=== PATIENT | female | born 1990 | race Caucasian/White ===

== ENCOUNTER 2018-12-21 18:25 | Emergency (ER) | payer MEDICAID ==
[~2018-12-21] VITALS: Ht 157.5 cm; Wt 71.2 kg
[~2018-12-21 18:25] MED LIST: IBUP-974 PO; PREN-385 PO; [UNRECOGNIZED DRUG - CODE] PO
[2018-12-21 18:33] VITALS: BP 116/59
--- NOTE | 2018-12-21 18:33 | NUR ---
PATIENT AMBULATED TO BED 4.
--- NOTE | 2018-12-21 18:45 | NUR ---
28 Y FEMALE PT C/O RLQ ABD PAIN X3 DAYS, REPORTS 7/10 SHARP PAIN RADIATING TO LOWER UMBILICAL. REPORTS VOMITING ONCE TODAY. PT IS X9 WEEKS , , LMP 10/09/18. DENIES VAGINAL BLEEDING. DENIES CONSTIPATION OR DIARRHEA. BOWEL SOUNDS ACTIVE IN ALL 4 QUADRANTS. LAST BM THIS AM. ABDOMEN SOFT AND ROUND. PT TAKING VITAMINS. VSS AT THIS TIME. ALERT AND ORIETNED. BED IS DOWN, LOCKED, BED RAIL X 1, ERMD TO SEE PT. PMH---GALLBLADDER REMOVAL NKA
--- NOTE | 2018-12-21 18:49 | NUR ---
PT AMB TO RESTROOM FOR URINE COLLECTION
--- NOTE | 2018-12-21 19:13 | NUR ---
REPORT GIVEN TO LISA CHOWDARY
--- NOTE | 2018-12-21 19:14 | NUR ---
RECEIVED REPORT FROM EPI COY.
--- NOTE | 2018-12-21 20:15 | NUR ---
LAB AT BEDSIDE.
[2018-12-21 20:30] LABS: BASOPHILS # (AUTO) 0.1 K/uL (0.00-0.22); BASOPHILS % (AUTO) 0.6 % (0.0-2.0); EOSINOPHILS # (AUTO) 0.3 K/uL (0-0.4); EOSINOPHILS % (AUTO) 3.6 % (0.0-4.0); HEMOGLOBIN 12.1 g/dL (12.0-16.0); LYMPHOCYTES # (AUTO) 1.8 K/uL (2.5-16.5); LYMPHOCYTES % (AUTO) 19.2 % (20.5-51.1); MEAN CORPUSCULAR HEMOGLOBIN 29 pg (27-31); MEAN CORPUSCULAR HGB CONC 34 g/dL (33-37); MEAN CORPUSCULAR VOLUME 85.2 fL (80-94); MONOCYTES # (AUTO) 0.6 K/uL (0.8-1.0); MONOCYTES % (AUTO) 6.6 % (1.7-9.3); NEUTROPHILS # (AUTO) 6.4 K/uL (1.8-7.7); PLATELET COUNT (AUTO) 255 K/uL (140-450); RED BLOOD CELL COUNT(AUTO) 4.23 MIL/uL (4.20-5.40); RED CELL DISTRIBUTION WIDTH 13.3 % (11.6-13.7); WHITE BLOOD COUNT (AUTO) 9.2 K/uL (4.8-10.8)
[2018-12-21 20:35] LABS: APPEARANCE,URINE CLEAR (CLEAR); BILIRUBIN,URINE NEGATIVE (NEGATIVE); BLOOD, URINE NEGATIVE (NEGATIVE); COLOR,URINE YELLOW (YELLOW); LEUKOCYTE ESTERASE ,URINE NEGATIVE (NEGATIVE); NITRITE, URINE NEGATIVE (NEGATIVE); PH,URINE 7.5 (5.0-9.0); UGLUCOSE NEGATIVE (NEGATIVE)
[2018-12-21 20:47] LABS: ALBUMIN 3.4 g/dL (3.4-5.0); ANION GAP 10.3 (8-16); CARBON DIOXIDE 27.8 mmol/L (21-32); CREATININE 0.9 mg/dL (0.6-1.3); POTASSIUM 4.1 mmol/L (3.5-5.1); TOTAL BILIRUBIN 0.3 mg/dL (0.0-1.0)
--- NOTE | 2018-12-21 21:04 | NUR ---
US AT BEDSIDE.
[2018-12-21 21:40] VITALS: BP 96/62
--- NOTE | 2018-12-21 21:40 | NUR ---
Patient discharged with v/s stable. Written and verbal after care instructions given and explained by Dr. Macias. Patient alert, oriented and verbalized understanding of instructions. Ambulatory with steady gait. All questions addressed prior to discharge. ID band removed. Patient advised to follow up with PMD. Rx of Tylenol given. Patient educated on indication of medication including possible reaction and side effects. Opportunity to ask questions provided and answered.
== END 2018-12-21 21:40 | disposition home or self-care (01) ==
LOC: MED 18:25
DX: O26.891 Other specified pregnancy related conditions, first trimester (principal); R10.31 Right lower quadrant pain; K21.9 Gastro-esophageal reflux disease without esophagitis; Z79.1 Long term (current) use of non-steroidal anti-inflammatories (NSAID); Z79.899 Other long term (current) drug therapy; Z3A.09 9 weeks gestation of pregnancy
CPT/HCPCS: 36415; 76801; 80053; 81003; 81025; 84702; 85025; 86900; 86901; 99284; Q0092

== ENCOUNTER 2019-06-24 21:45 | Observation (INO) | payer MEDICAID ==
[~2019-06-24] VITALS: Ht 157.5 cm; Wt 77.1 kg
[2019-06-24 22:23] VITALS: BP 101/64
[2019-06-24 22:26] LABS: APPEARANCE,URINE CLEAR (CLEAR); BILIRUBIN,URINE NEGATIVE (NEGATIVE); BLOOD, URINE NEGATIVE (NEGATIVE); COLOR,URINE YELLOW (YELLOW); LEUKOCYTE ESTERASE ,URINE NEGATIVE (NEGATIVE); NITRITE, URINE NEGATIVE (NEGATIVE); UGLUCOSE NEGATIVE (NEGATIVE)
[2019-06-25] MEDS ORDERED: ONDANSETRON 4 MG/2 ML VIAL IVP ONE (00:05)
[2019-06-25] MEDS ORDERED: METOCLOPRAMIDE 10 MG/2 ML INJ VIAL IVP ONE (00:05)
[2019-06-25] MEDS ORDERED: PANTOPRAZOLE 40 MG INJ VIAL IVP ONE (00:05)
[2019-06-25] MEDS ORDERED: METOCLOPRAMIDE 10 MG/2 ML INJ VIAL ONE (00:17)
[2019-06-25] MEDS ORDERED: LACTATED RINGERS 1,000 ML IV SCH (00:40)
[2019-06-25] MEDS ORDERED: PANTOPRAZOLE 40 MG INJ VIAL ONE (00:47)
[2019-06-25 00:53] LABS: ANION GAP 13.7 (8-16); CREATININE 0.6 mg/dL (0.6-1.3); POTASSIUM 3.7 mmol/L (3.5-5.1)
[2019-06-25 00:58] LABS: ALBUMIN 2.4 g/dL (3.4-5.0); TOTAL BILIRUBIN 0.4 mg/dL (0.0-1.0)
[2019-06-25 01:04] LABS: BASOPHILS % (AUTO) 0.1 % (0.0-2.0); EOSINOPHILS # (AUTO) 0.1 K/uL (0-0.4); EOSINOPHILS % (AUTO) 0.7 % (0.0-4.0); HEMATOCRIT 35.1 % (36-48); HEMOGLOBIN 11.5 g/dL (12.0-16.0); LYMPHOCYTES # (AUTO) 1.2 K/uL (2.5-16.5); LYMPHOCYTES % (AUTO) 10.4 % (20.5-51.1); MEAN CORPUSCULAR HEMOGLOBIN 29 pg (27-31); MEAN CORPUSCULAR HGB CONC 33 g/dL (33-37); MEAN CORPUSCULAR VOLUME 87.2 fL (80-94); MONOCYTES # (AUTO) 0.5 K/uL (0.8-1.0); MONOCYTES % (AUTO) 4.4 % (1.7-9.3); NEUTROPHILS # (AUTO) 9.8 K/uL (1.8-7.7); NEUTROPHILS % (AUTO) 84.4 % (42.2-75.2); PLATELET COUNT (AUTO) 275 K/uL (140-450); RED BLOOD CELL COUNT(AUTO) 4.02 MIL/uL (4.20-5.40); WHITE BLOOD COUNT (AUTO) 11.6 K/uL (4.8-10.8)
[2019-06-25] MEDS ORDERED: ONDANSETRON 4 MG/2 ML VIAL ONE (01:34)
== END 2019-06-25 03:12 | disposition home or self-care (01) ==
LOC: MLD 21:45
PROVIDERS: ADMIT Obstetrics & Gynecology; ATTEND Obstetrics & Gynecology
DX: O60.03 Preterm labor without delivery, third trimester (principal); O99.333 Smoking (tobacco) complicating pregnancy, third trimester; F17.200 Nicotine dependence, unspecified, uncomplicated; Z3A.32 32 weeks gestation of pregnancy
CPT/HCPCS: 36415; 76817; 80053; 81000; 81003; 85025; 87086; 96374; 96375; C9113; G0378; J2405; J2765; J7120; Q0092

== ENCOUNTER 2019-08-23 23:34 | Inpatient (IN) | payer MEDICAID ==
[~2019-08-23] VITALS: Ht 157.5 cm; Wt 71.2 kg
[2019-08-24] MEDS ORDERED: NALBUPHINE 10 MG/ML AMP IVP PRN (00:15)
[2019-08-24] MEDS ORDERED: OXYTOCIN 20 UNITS in LACTATED RINGERS 1,000 ML IV SCH (00:15)
[2019-08-24] MEDS ORDERED: METHYLERGONOVINE 0.2 MG/ML AMP IM PRN ×2 (00:15→05:00)
[2019-08-24] MEDS ORDERED: LACTATED RINGERS 1,000 ML IV SCH (00:15)
[2019-08-24 00:48] LABS: APPEARANCE,URINE CLEAR (CLEAR); BILIRUBIN,URINE NEGATIVE (NEGATIVE); BLOOD, URINE 2+ (NEGATIVE); COLOR,URINE YELLOW (YELLOW); LEUKOCYTE ESTERASE ,URINE TRACE (NEGATIVE); NITRITE, URINE NEGATIVE (NEGATIVE); UGLUCOSE NEGATIVE (NEGATIVE)
[2019-08-24 00:50] LABS: BASOPHILS # (AUTO) 0.1 K/uL (0.00-0.22); BASOPHILS % (AUTO) 0.7 % (0.0-2.0); EOSINOPHILS # (AUTO) 0.1 K/uL (0-0.4); EOSINOPHILS % (AUTO) 0.7 % (0.0-4.0); HEMATOCRIT 33.4 % (36-48); HEMOGLOBIN 10.9 g/dL (12.0-16.0); LYMPHOCYTES % (AUTO) 21.7 % (20.5-51.1); MEAN CORPUSCULAR HEMOGLOBIN 27 pg (27-31); MEAN CORPUSCULAR HGB CONC 33 g/dL (33-37); MEAN CORPUSCULAR VOLUME 83.4 fL (80-94); MONOCYTES # (AUTO) 0.6 K/uL (0.8-1.0); MONOCYTES % (AUTO) 6.2 % (1.7-9.3); NEUTROPHILS # (AUTO) 6.6 K/uL (1.8-7.7); NEUTROPHILS % (AUTO) 70.7 % (42.2-75.2); PLATELET COUNT (AUTO) 240 K/uL (140-450); RED CELL DISTRIBUTION WIDTH 13.9 % (11.6-13.7); WHITE BLOOD COUNT (AUTO) 9.3 K/uL (4.8-10.8)
[2019-08-24] MEDS: PROMETHAZINE 25 MG/ML VIAL IVP PRN (00:54)
[2019-08-24 01:06] LABS: WBC,URINE 20-60 /HPF (0-5)
[2019-08-24 01:07] LABS: CALCIUM OXALATE CRYSTALS,UR 0-10 /HPF (None Seen)
[2019-08-24 01:20] LABS: ALBUMIN 2.4 g/dL (3.4-5.0); ANION GAP 13.6 (8-16); CARBON DIOXIDE 26.2 mmol/L (21-32); CREATININE 0.9 mg/dL (0.6-1.3); POTASSIUM 3.8 mmol/L (3.5-5.1); TOTAL BILIRUBIN 0.2 mg/dL (0.0-1.0)
[2019-08-24] MEDS ORDERED: OXYTOCIN 20 UNITS/LR PREMIX 1,000 ML IV ONE (03:12)
[2019-08-24] MEDS ORDERED: IBUPROFEN 800 MG TAB PO PRN (05:00)
[2019-08-24] MEDS ORDERED: BENZOCAINE/MENTHOL 20%-0.5% 60 GM CAN TP PRN (05:00)
[2019-08-24] MEDS ORDERED: METHYLERGONOVINE 0.2 MG TAB PO PRN (05:00)
[2019-08-24] MEDS ORDERED: MEASLES, MUMPS, AND RUBELLA 1 VIAL SQVAC PRN (05:00)
[2019-08-24] MEDS ORDERED: OXYTOCIN 10 UNITS/ML VIAL IM PRN (05:00)
--- NOTE | 2019-08-24 09:07 | NUR ---
PATIENT IS SCREENED AND CATEGORIZED LOW NUTRITION RISK. PATIENT WILL BE SEEN WITHIN 5-7 DAY OF ADMISSION. 08/28/2019-08/30/[address]
[2019-08-24 11:49] LABS: HEMATOCRIT 32.7 % (36-48); HEMOGLOBIN 10.5 g/dL (12.0-16.0)
[2019-08-25] MEDS ORDERED: LACTATED RINGERS 1,000 ML IV SCH ×2 (04:35→08:25)
[2019-08-25 05:59] LABS: PROTHROMBIN TIME 9.3 secs (10.8-13.4)
[2019-08-25] MEDS ORDERED: fentaNYL 0.05 MG/ML VIAL ONE (08:00)
[2019-08-25] MEDS ORDERED: ONDANSETRON 4 MG/2 ML VIAL ONE (08:00)
[2019-08-25] MEDS ORDERED: SUCCINYLCHOLINE CHLORIDE 200 MG/10 ML VIAL IVP ONE (08:00)
[2019-08-25] MEDS ORDERED: PROPOFOL 200 MG/20 ML VIAL IV ONE (08:00)
[2019-08-25] MEDS ORDERED: DEXAMETHASONE 4 MG/ML VIAL ONE (08:00)
[2019-08-25] MEDS ORDERED: KETOROLAC 30 MG/ML VIAL ONE (08:00)
[2019-08-25] MEDS ORDERED: SEVOFLURANE 250 ML BTL INH ONE (08:00)
[2019-08-25] MEDS ORDERED: BUPIVACAINE-MPF/EPI 0.25% 10 ML VIAL INJ ONE (08:23)
[2019-08-25] MEDS ORDERED: diphenhydrAMINE 50 MG/ML VIAL IVP PRN (08:25)
[2019-08-25] MEDS ORDERED: ONDANSETRON 4 MG/2 ML VIAL IVP PRN (08:25)
[2019-08-25] MEDS ORDERED: HYDROmorphone 1 MG/ML AMP IVP PRN (08:25)
[2019-08-25] MEDS ORDERED: MEPERIDINE 25 MG/ML SYR IVP PRN (08:25)
[2019-08-25] MEDS ORDERED: oxyCODONE/APAP 5/325 MG 1 TAB TAB PO PRN (09:15)
[2019-08-25] MEDS ORDERED: HYDROmorphone PFS 2 MG/ML SYR ONE (09:32)
[2019-08-26] MEDS ORDERED: INFLUENZA VACCINE QUAD 0.5 ML SYR IMVAC PRN (05:25)
[2019-08-26] MEDS ORDERED: DOCUSATE SODIUM 100 MG GELCAP PO PRN ×2 (07:05→07:30)
[2019-08-26] MEDS ORDERED: BISACODYL 5 MG TABEC PO PRN (07:30)
[2019-08-26] MEDS ORDERED: BISACODYL 10 MG SUPP RC PRN (07:30)
== END 2019-08-26 21:30 | disposition home or self-care (01) | DRG 541 ==
LOC: MLD 23:34 → MFCC 08-24 05:45
PROVIDERS: ADMIT Obstetrics & Gynecology; ATTEND Obstetrics & Gynecology
PROC: 10E0XZZ Delivery of Products of Conception, External Approach (ICD-10-PCS; principal; 2019-08-24)
PROC: 0UB70ZZ Excision of Bilateral Fallopian Tubes, Open Approach (ICD-10-PCS; 2019-08-25)
PROC: 3E0234Z Introduction of Serum, Toxoid and Vaccine into Muscle, Percutaneous Approach (ICD-10-PCS; 2019-08-26)
DX: O80 Encounter for full-term uncomplicated delivery (principal); Z23 Encounter for immunization; Z30.2 Encounter for sterilization; Z37.0 Single live birth; Z3A.40 40 weeks gestation of pregnancy
CPT/HCPCS: 36415; 59409; 80053; 81001; 85018; 85025; 85610; 86592; 86886; 86900; 86901; 87086; 88302; 90715; J0330; J1100; J1170; J1885; J2300; J2405; J2550; J2590; J2704; J3010; J3490; J7120